=== PATIENT | male | born 1975 | race Caucasian/White ===

== ENCOUNTER 2022-10-23 10:04 | Day surgery (SDC) | payer OTHER ==
[~2022-10-23] VITALS: Ht 175.3 cm; Wt 104.3 kg
[2022-10-23] MEDS: MIDAZOLAM HCL 5 MG/5 ML VIAL ONE ×2 (12:09→12:11)
[2022-10-23] MEDS: fentaNYL CITRATE/PF 100 MCG/2 ML AMP ONE ×2 (12:09→12:11)
[2022-10-23 13:45] VITALS: BP_SYST 117
== END 2022-10-23 13:30 | disposition home or self-care (01) ==
LOC: SDS 10:04 → SMU 10:08 → SDS 13:30
PROVIDERS: ATTEND Surgery
DX: R19.4 Change in bowel habit (principal); K64.8 Other hemorrhoids; I10 Essential (primary) hypertension; Z20.822 Contact with and (suspected) exposure to COVID-19
CPT/HCPCS: 36415; 45378; 99153; 99152; U0003; G0378; J2250; J3010